=== PATIENT | female | born 1955 | race Caucasian/White ===

== ENCOUNTER 2017-08-14 15:03 | Outpatient (CLI) | payer OTHER ==
--- NOTE | 2017-08-15 14:03 | Mammography Report ---
DATE OF SERVICE: 08/14/2017 DIGITAL SCREENING MAMMOGRAM: 08/14/2017 CLINICAL INDICATION: A 61-year-old nulliparous patient with family history of breast cancer, for screening. COMPARISON: 02/2015, 06/2012, 04/2011, 02/2010. TECHNIQUE: Routine CC and MLO projections were obtained of the breasts. FINDINGS: The breasts again demonstrate heterogeneously dense fibroglandular parenchyma bilaterally. Coarse and punctate, typically benign calcifications are present. No suspicious masses, clustered microcalcifications, or regions of architectural distortion are identified. IMPRESSION: BENIGN FINDINGS. RECOMMENDATION: ROUTINE ANNUAL SCREENING UNLESS OTHERWISE CLINICALLY INDICATED. BIRADS CATEGORY 2-BENIGN FINDINGS. STANDARD QUALIFYING STATEMENTS: 1. This examination was reviewed with the aid of Computer-Aided Detection (CAD) . 2. A negative or benign imaging report should not delay biopsy if clinically suspicious findings are present. Consider surgical consultation if warranted. More than 5 % of cancers are not identified by imaging. 3. Dense breasts may obscure an underlying neoplasm. TD: 08/15/2017 15:02 VICKEY
== END 2017-08-14 15:04 | disposition home or self-care (01) ==
LOC: DI.S 15:03
PROVIDERS: ATTEND Nurse Practitioner Family
DX: Z12.31 Encounter for screening mammogram for malignant neoplasm of breast (principal); Z80.3 Family history of malignant neoplasm of breast
CPT/HCPCS: 77067

== ENCOUNTER 2017-12-05 08:25 | Outpatient (CLI) | payer OTHER ==
--- NOTE | 2017-12-05 09:12 | Ultrasound Report ---
ULTRASOUND RIGHT BREAST: 12/05/2017 CLINICAL INDICATION: Palpable abnormality 9-o'clock right breast. 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 FINDINGS: Ultrasound of the palpable abnormality identified by the patient was performed. At this site, there is a 1.4 x 1.2 x 0.4 cm lipoma. No sonographically suspicious findings are identified. IMPRESSION: SIMPLE LIPOMA, ACCOUNTING FOR THE PALPABLE ABNORMALITY. RECOMMENDATION: Routine annual screening, next due in July 2018, unless otherwise clinically indicated. BI-RADS CATEGORY 2 - BENIGN FINDINGS. TD: 12/05/2017 09:07
== END 2017-12-05 08:26 | disposition home or self-care (01) ==
LOC: DI 08:25
PROVIDERS: ATTEND Nurse Practitioner Family
DX: N63.41 Unspecified lump in right breast, subareolar (principal); D17.79 Benign lipomatous neoplasm of other sites
CPT/HCPCS: 76642

== ENCOUNTER 2019-08-20 10:11 | Outpatient (CLI) | payer MEDICARE ==
--- NOTE | 2019-08-21 09:21 | DEXA Report ---
Reason: MENOPAUSAL Procedure Date: 08/20/2019 Accession Number: [id number] / [id number] Procedure: DEX - Dexa Spine and/or Hip CPT Code: Final Report FULL RESULT: EXAM: Dexa Spine and/or Hip DATE: 08/20/2019 11:16 AM CLINICAL HISTORY: MENOPAUSAL TECHNIQUE: Dual energy x-ray absorptiometry (DXA) was performed on a [employer]. Regions measured are the AP Spine, femoral neck, and if needed forearm. COMPARISON: None. In accordance with the International Society for Clinical Densitometry (ISCD) guidelines, data from previous exams may be reanalyzed using current recommendations and techniques. This is done to allow a more accurate basis for comparison with the current study. FINDINGS: The data for the lumbar spine is as follows: BMD (g/cm/cm) T-SCORE Z-SCORE REGION L1 0.934 -1.6 0.0 L2 1.015 -1.5 0.1 L3 1.042 -1.3 0.3 L4 0.978 -1.8 -0.2 TOTAL 0.995 -1.5 0.1 NOTE: All evaluable vertebrae are used for classification The data for the hip is as follows: BMD (g/cm/cm) T-SCORE Z-SCORE REGION Neck 0.761 -2.0 -0.5 TOTAL 0.838 -1.3 -0.1 NOTE: The femoral neck or total proximal femur, whichever is lowest, is used for classification. IMPRESSION: THE WHO CLASSIFICATION BASED ON THE INTERNATIONAL REFERENCE STANDARD IS OSTEOPENIA. THE FRACTURE RISK IS INCREASED. RECOMMENDATION: Patients with diagnosis of osteoporosis or osteopenia should have regular bone mineral density assessment. For those eligible for Medicare, routine testing is allowed once every 2 years. Testing frequency can be increased for patients who have rapidly progressing disease or for those who are receiving medical therapy to restore bone mass. COMMENT: World Health Organization (WHO) definitions for osteoporosis and osteopenia: NORMAL BMD: T-score at -1.0 or higher, fracture risk is low OSTEOPENIA BMD: T-score between -1.0 and -2.5, fracture risk is increased. OSTEOPOROSIS BMD: T-score at -2.5 or lower, fracture risk is high. National Osteoporosis Foundation recommends: 1. Obtain adequate dietary calcium (at least 1200 mg per day) and vitamin D (400-800 international units per day). 2. Participate, as appropriate, in regular weightbearing and muscle-strengthening exercise. 3. Avoid tobacco use and reduce alcohol and caffeine intake. 4. For more detailed information see the website at www.NOF.org.
== END 2019-08-20 10:12 | disposition home or self-care (01) ==
LOC: DI 10:11
PROVIDERS: ATTEND Registered Nurse
DX: M85.89 Other specified disorders of bone density and structure, multiple sites (principal); Z78.0 Asymptomatic menopausal state
CPT/HCPCS: 77080

== ENCOUNTER 2019-08-20 10:14 | Outpatient (CLI) | payer MEDICARE ==
--- NOTE | 2019-08-21 10:13 | Mammography Report ---
Reason: ROUTINE MAMMO Procedure Date: 08/20/2019 Accession Number: [id number] / [id number] Procedure: RAMANDEEP - Screening Mammo w/Sy CPT Code: Final Report FULL RESULT: EXAM: Screening Mammo w/Sy DATE: 08/20/2019 11:00 AM CLINICAL HISTORY: Screening encounter. History of nulliparity. Family history of breast cancer in the mother at the age 78. TECHNIQUE: (B) - Bilateral CC and MLO views were obtained. Left laterally exaggerated CC view was obtained. COMPARISON: 08/14/2017 through 03/21/2010. PARENCHYMAL PATTERN: (D) - The breast(s) demonstrate(s) heterogeneously dense fibroglandular parenchyma. FINDINGS: There are no suspicious masses, calcifications, or areas of distortion. IMPRESSION: Benign findings. BI-RADS category 2. RECOMMENDATION: (ANNUAL) - Recommend routine annual screening mammography. BI-RADS CATEGORY: (2) - Benign Findings. STANDARD QUALIFYING STATEMENTS: 1. This examination was not reviewed with the aid of Computer-Aided Detection (CAD). 2. A negative or benign imaging report should not preclude biopsy if clinically suspicious findings are present. 3. Dense breasts may obscure an underlying neoplasm. 4. This examination was reviewed with the aid of 3D breast imaging (tomosynthesis).
== END 2019-08-20 10:15 | disposition home or self-care (01) ==
LOC: DI 10:14
PROVIDERS: ATTEND Registered Nurse
DX: Z12.31 Encounter for screening mammogram for malignant neoplasm of breast (principal); Z80.3 Family history of malignant neoplasm of breast
CPT/HCPCS: 77063; 77067

== ENCOUNTER 2021-02-01 10:58 | Outpatient (CLI) | payer MEDICARE ==
--- NOTE | 2021-02-02 11:58 | Mammography Report ---
BILATERAL DIGITAL SCREENING MAMMOGRAM 3D/2D WITH EXAGGERATED CC: 02/01/2021 CLINICAL: Family history of breast cancer. Comparison is made to exams dated: 08/20/2019 mammogram, 08/14/2017 mammogram, and 03/16/2015 mammogram - [facility]. The tissue of both breasts is heterogeneously dense. This may lower the sensitivity of mammography. No significant masses, calcifications, or other findings are seen in either breast. There has been no significant interval change. IMPRESSION: NEGATIVE There is no mammographic evidence of malignancy. A 1 year screening mammogram is recommended. This exam was interpreted at Station ID: [id number]. NOTE: For mammograms, a report in lay terms will be sent to the patient. Approximately 15% of breast malignancies will not be visualized mammographically. In the management of a palpable breast mass, a negative mammogram must not discourage biopsy of a clinically suspicious lesion. Electronically Signed By: Ventura Barobsa M.D. aty/penrad:02/01/2021 13:03:45 ACR BI-RADS Category 1: Negative 3341F PARENCHYMAL PATTERN: (D) - The breast(s) demonstrate(s) heterogeneously dense fibroglandular premay ma. BI-RADS CATEGORY: (1) - 1 RECOMMENDATION: (ANNUAL) - Recommend routine annual screening mammography. [id number] 1 year screening LATERALITY: (B)
== END 2021-02-01 10:59 | disposition home or self-care (01) ==
LOC: DI.S 10:58
PROVIDERS: ATTEND Nurse Practitioner Family
DX: Z12.31 Encounter for screening mammogram for malignant neoplasm of breast (principal); Z80.3 Family history of malignant neoplasm of breast

== ENCOUNTER 2023-07-10 10:57 | Outpatient (CLI) | payer MEDICARE ==
--- NOTE | 2023-07-11 12:13 | Mammography Report ---
BILATERAL DIGITAL SCREENING MAMMOGRAM 3D/2D: 07/10/2023 CLINICAL: Routine screening. Family history of breast cancer. Comparison is made to exams dated: 03/07/2022 mammogram, 02/01/2021 mammogram, 08/20/2019 mammogram, mammogram, and 03/16/2015 mammogram - [facility]. There are scattered areas of fibroglandular density in both breasts (category b / 25%-50% glandular t issue). No significant masses, calcifications, or other findings are seen in either breast. There has been no significant interval change. IMPRESSION: NEGATIVE There is no mammographic evidence of malignancy. A 1 year screening mammogram is recommended. Based on the Tyrer Cuzick model (a risk assessment model) the patients lifetime risk is 5.7% and her 10 year risk is 3.1%. According to the ACR, ACS, and NCCN guidelines, an annual breast MRI exam yamileth g with mammogram is recommended if the patients lifetime risk is 20% or greater. This exam was interpreted at Station ID: [id number]. NOTE: For mammograms, a report in lay terms will be sent to the patient. Approximately 15% of breast malignancies will not be visualized mammographically. In the management of a palpable breast mass, a negative mammogram must not discourage biopsy of a clinically suspicious lesion. Electronically Signed By: Ventura iyer/darnell:07/10/2023 20:15:41 letter sent: No_Letter ACR BI-RADS Category 1: Negative 3341F PARENCHYMAL PATTERN: (A) - The breast(s) demonstrate(s) scattered fibroglandular densities. BI-RADS CATEGORY: (1) - 1 Mammogram [id number] 1 year screening LATERALITY: (B)
== END 2023-07-10 10:58 | disposition home or self-care (01) ==
LOC: DI.S 10:57
PROVIDERS: ATTEND Registered Nurse
DX: Z12.31 Encounter for screening mammogram for malignant neoplasm of breast (principal); Z80.3 Family history of malignant neoplasm of breast; R92.323 Mammographic fibroglandular density, bilateral breasts

== ENCOUNTER 2023-08-14 12:49 | Outpatient (CLI) | payer MEDICARE ==
--- NOTE | 2023-08-14 15:29 | DEXA Report ---
PROCEDURE: Dexa Spine and/or Hip INDICATIONS: OSTEOPENIA TECHNIQUE: Dual energy x-ray absorptiometry (DXA) was performed on a [employer]. Regions measur ed are the AP Spine, femoral neck, and if needed forearm. COMPARISON: 08/20/2019 FINDINGS: Lumbar Spine: Bone Mineral Density 1 g/cm/cm,T score -1.5. Previously -1.5 Left Femoral Neck: Bone Mineral Density 0.7 g/cm/cm, T score -2.5, previously -2. Left Hip: Bone Mineral Density 0.77 g/cm/cm,T score -1.9, previously -1.3 (T score greater or equal to -1.0: NORMAL) (T score from -1.1 to -2.4: OSTEOPENIA) (T score less than or equal to -2.5 to: OSTEOPOROSIS) Impression: By WHO criteria, this patient has osteoporosis. Unchanged spine bone mineral density. Interval decrease in the T-scores at the left femoral neck and hip. Patients with diagnosis of osteoporosis or osteopenia should have regular bone mineral density assess ment. For those eligible for Medicare, routine testing is allowed once every 2 years. Testing frequ ency can be increased for patients who have rapidly progressing disease or for those who are receivin g medical therapy to restore bone mass. Reviewed by: Wilfrido Mendoza MD on 08/14/2023 3:28 PM PST Approved by: Wilfrido Mendoza MD on 08/14/2023 3:28 PM PST Station ID: [id number]
== END 2023-08-14 12:50 | disposition home or self-care (01) ==
LOC: DI 12:49
PROVIDERS: ATTEND Registered Nurse
DX: M81.0 Age-related osteoporosis without current pathological fracture (principal)